=== PATIENT | female | born 1990 | race Caucasian/White ===

== ENCOUNTER 2016-07-24 20:36 | Emergency (ER) | payer OTHER ==
[2016-07-24 20:58] LABS: SPECIFIC GRAVITY 1.025 (1.001-1.030); URINE BILIRUBIN NEGATIVE (NEGATIVE); URINE BLOOD NEGATIVE (NEGATIVE); URINE GLUCOSE (UA) NEGATIVE (NEGATIVE); URINE LEUKOCYTE ESTERASE NEGATIVE (NEGATIVE); URINE NITRITE NEGATIVE (NEGATIVE); URINE PROTEIN NEGATIVE (NEGATIVE); URINE UROBILINOGEN NORMAL (0-1 mg/dl)
[2016-07-24 21:02] LABS: URINE APPEARANCE CLEAR; URINE COLOR DARK YELLOW
[2016-07-24] MEDS ORDERED: MAALOX/LIDO2%VISC/SIMETHICONE 40 ML BOT ONE (21:22)
[2016-07-24] MEDS ORDERED: ONDANSETRON 4 MG ODT TAB ONE (21:23)
== END 2016-07-24 21:40 | disposition home or self-care (01) ==
LOC: ED 20:36
DX: R11.2 Nausea with vomiting, unspecified (principal); R19.7 Diarrhea, unspecified
CPT/HCPCS: 81003; 99283 ×2; A9270 ×2